=== PATIENT | male | born 1975 | race Caucasian/White ===

== ENCOUNTER 2018-02-20 05:55 | Emergency (ER) | payer SELFPAY ==
[~2018-02-20] VITALS: Ht 193 cm; Wt 109.1 kg
[2018-02-20 06:01] VITALS: Ht 193 cm; Wt 109.1 kg
[2018-02-20] MEDS ORDERED: NEURONTIN 300300 MG PO (06:02)
[2018-02-20] MEDS ORDERED: SEROQUEL300 MG PO (06:03)
[2018-02-20] MEDS ORDERED: LITHIUM CARBON300 MG PO (06:03)
[2018-02-20] MEDS ORDERED: VALIUM5 MG PO (06:03)
[2018-02-20 06:29] LABS: BASOPHILS 0.3 % (0-2); EOSINOPHILS 0.3 % (0-7); HEMATOCRIT 43.4 % (42.0-54.0); HEMOGLOBIN 15.3 g/dL (13.5-17.5); IMMATURE GRANULOCYTES 0.3 % (0-5); LYMPHOCYTES 13.6 % (15-50); MCH 30.2 pg (26.0-34.0); MCHC 35.3 g/dL (31.0-37.0); MCV 85.6 fL (80.0-100.0); MONOCYTES 12.5 % (2-11); PLATELET COUNT 128 10x3/uL (130-400); RBC 5.07 10x6/uL (4.20-6.10); RDW 13.1 % (11.5-14.5); WBC 17.4 10x3/uL (4.8-10.8)
[2018-02-20 06:55] LABS: ALBUMIN 4.5 g/dL (3.4-5.0); ANION GAP 17.8 mmol/L (8-16); BILIRUBIN - TOTAL 1.81 mg/dL (0.2-1.3); CALCIUM 8.7 mg/dL (8.5-10.1); CARBON DIOXIDE 25.3 mmol/L (21.0-32.0); CREATININE - SERUM 2.4 mg/dL (0.6-1.3); MAGNESIUM - SERUM 1.9 mg/dL (1.8-2.4); POTASSIUM - SERUM 3.1 mmol/L (3.5-5.1)
[2018-02-20 06:58] LABS: UDS - AMPHET POSITIVE QUAL (NEGATIVE); UDS - BARB NEGATIVE QUAL (NEGATIVE); UDS - BENZO POSITIVE QUAL (NEGATIVE); UDS - COCAINE NEGATIVE QUAL (NEGATIVE); UDS - OPIATE NEGATIVE QUAL (NEGATIVE); UDS - PCP NEGATIVE QUAL (NEGATIVE); UDS - THC NEGATIVE QUAL (NEGATIVE)
[2018-02-20 07:12] LABS: APPEARANCE HAZY (CLEAR); BILIRUBIN NEGATIVE (NEGATIVE); COLOR DY (YELLOW); GLUCOSE NEGATIVE (NEGATIVE); KETONE NEGATIVE (NEGATIVE); NITRITE NEGATIVE (NEGATIVE); PROTEIN TRACE mg/dL (NEGATIVE); UROBILINOGEN NORMAL (NORMAL)
[2018-02-20 07:14] LABS: GRANULAR CAST 25-50 /lpf (NONE SEEN); HYALINE CAST 25-50 /lpf (NONE SEEN)
[2018-02-20 07:15] LABS: EPITHELIAL CELLS 0-5 /hpf (0-5); RED CELLS - URINE RARE /hpf (0-5); WHITE CELLS - URINE RARE /hpf (0-5)
[2018-02-20 12:46] VITALS: BP 142/68
== END 2018-02-20 12:48 | disposition home or self-care (01) ==
LOC: D.ER 05:55
PROVIDERS: Family Medicine
DX: R56.9 Unspecified convulsions (principal); F17.200 Nicotine dependence, unspecified, uncomplicated